=== PATIENT | female | born 1940 | race Caucasian/White ===

== ENCOUNTER → 2022-02-07 09:23 | Outpatient (BNVA) | payer MEDICARE, OTHER, SELFPAY | PROVIDERS: Family Provider Family Medicine; PCP Family Medicine; Visit Provider Internal Medicine Rheumatology | DX: M35.3 Polymyalgia rheumatica (principal); R76.8 Other specified abnormal immunological findings in serum; Z79.899 Other long term (current) drug therapy; Z79.52 Long term (current) use of systemic steroids; Z11.59 Encounter for screening for other viral diseases; Z11.1 Encounter for screening for respiratory tuberculosis; M81.0 Age-related osteoporosis without current pathological fracture; Z71.85 Encounter for immunization safety counseling | CPT/HCPCS: 80076; 82306; 82565; 85025; 85651; 86140; 86160; 86162; 86200; 86235; 86255; 86376; 86480; 86704; 86803; 87340; 99204 ==

== ENCOUNTER → 2022-05-23 14:03 | Outpatient (BNVA) | payer MEDICARE, OTHER, SELFPAY | PROVIDERS: Family Provider Family Medicine; PCP Family Medicine; Visit Provider Internal Medicine Rheumatology | DX: M35.3 Polymyalgia rheumatica (principal); Z79.899 Other long term (current) drug therapy; Z71.85 Encounter for immunization safety counseling; M19.90 Unspecified osteoarthritis, unspecified site; M81.0 Age-related osteoporosis without current pathological fracture | CPT/HCPCS: 99214 ==

== ENCOUNTER 2022-06-20 13:05 | Outpatient (CLI) | payer MEDICARE, OTHER, SELFPAY ==
[2022-06-20 13:26] LABS: Basophils % 0.3 %; Eosinophils % 0.2 %; Hematocrit 39.3 % (37.0-47.0); Hemoglobin 12.9 g/dL (11.5-15.3); Lymphocytes % 9.8 %; Mean Corpuscular HGB Conc 32.8 g/dL (30.0-36.0); Mean Corpuscular Hemoglobin 31.2 pg (28.0-34.0); Mean Corpuscular Volume 94.9 fl (81-99); Mean Platelet Volume 9.9 fL (7.4-10.4); Monocytes # 0.3 10^3/uL (0.2-0.9); Monocytes % 2.5 %; Neutrophils # 8.78 10^3/uL (1.8-7.7); Neutrophils % 86.5 %; Nucleated Red Blood Cells % 0 %; Platelet Count 280 10^3/cmm (130-400); Red Blood Count 4.14 10^6/uL (4.1-5.3); Red Cell Distribution Width 14.6 % (12.1-15.1); White Blood Count 10.1 10^3/uL (4.0-10.0)
[2022-06-20 15:05] LABS: Alanine Aminotransferase 16 U/L (0-33); Albumin Level 4.7 g/dL (3.5-5.2); Alkaline Phosphatase 60 U/L (35-105); Globulin 2.4 g/dL (1.3-4.6); Total Bilirubin 0.3 mg/dL (0.15-1.2); Total Protein 7.1 g/dL (6.6-8.7)
[2022-06-20 15:29] LABS: Aspartate Amino Transferase 17 U/L (0-32)
== END 2022-06-20 13:06 | disposition home or self-care (01) ==
PROVIDERS: PCP Family Medicine; Visit Provider Internal Medicine Rheumatology
DX: M35.3 Polymyalgia rheumatica (principal); Z79.899 Other long term (current) drug therapy
CPT/HCPCS: 36415; 80076; 82565; 85025; 86140

== ENCOUNTER → 2022-07-31 08:44 | Outpatient (BNVA) | payer MEDICARE, OTHER, SELFPAY | PROVIDERS: PCP Family Medicine; Visit Provider Internal Medicine Rheumatology | DX: M35.3 Polymyalgia rheumatica (principal); Z79.899 Other long term (current) drug therapy | CPT/HCPCS: 80076; 82565; 85025 ==

== ENCOUNTER → 2022-08-13 11:03 | Outpatient (BNVA) | payer MEDICARE, OTHER, SELFPAY | PROVIDERS: PCP Family Medicine; Visit Provider Internal Medicine Rheumatology | DX: M35.3 Polymyalgia rheumatica (principal); Z79.899 Other long term (current) drug therapy; Z71.85 Encounter for immunization safety counseling; M19.90 Unspecified osteoarthritis, unspecified site; R76.8 Other specified abnormal immunological findings in serum; Z79.52 Long term (current) use of systemic steroids; M81.0 Age-related osteoporosis without current pathological fracture | CPT/HCPCS: 99214 ==

== ENCOUNTER → 2022-10-31 09:05 | Outpatient (BNVA) | payer MEDICARE, OTHER, SELFPAY | PROVIDERS: PCP Family Medicine; Visit Provider Internal Medicine Rheumatology | DX: Z79.899 Other long term (current) drug therapy (principal); M35.3 Polymyalgia rheumatica | CPT/HCPCS: 80076; 82565; 85025; 85651; 86140 ==

== ENCOUNTER → 2022-11-06 10:31 | Outpatient (BNVA) | payer MEDICARE, OTHER, SELFPAY | PROVIDERS: PCP Family Medicine; Visit Provider Internal Medicine Rheumatology | DX: M35.3 Polymyalgia rheumatica (principal); Z79.899 Other long term (current) drug therapy; Z71.85 Encounter for immunization safety counseling | CPT/HCPCS: 99214 ==

== ENCOUNTER → 2023-01-29 09:06 | Outpatient (BNVA) | payer MEDICARE, OTHER, SELFPAY | PROVIDERS: PCP Family Medicine; Visit Provider Internal Medicine Rheumatology | DX: M35.3 Polymyalgia rheumatica (principal); Z79.899 Other long term (current) drug therapy | CPT/HCPCS: 80076; 82565; 85025; 86140 ==

== ENCOUNTER → 2023-02-04 11:24 | Outpatient (BNVA) | payer MEDICARE, OTHER, SELFPAY | PROVIDERS: PCP Family Medicine; Visit Provider Internal Medicine Rheumatology | DX: M35.3 Polymyalgia rheumatica (principal); Z79.899 Other long term (current) drug therapy; Z71.85 Encounter for immunization safety counseling | CPT/HCPCS: 99214 ==

== ENCOUNTER → 2023-03-13 09:08 | Outpatient (BNVA) | payer MEDICARE, OTHER, SELFPAY | PROVIDERS: PCP Family Medicine; Visit Provider Internal Medicine Rheumatology | DX: M35.3 Polymyalgia rheumatica (principal); Z79.899 Other long term (current) drug therapy | CPT/HCPCS: 80076; 82565; 85025; 86140 ==

== ENCOUNTER → 2023-05-13 10:54 | Outpatient (BNVA) | payer MEDICARE, OTHER, SELFPAY | PROVIDERS: PCP Family Medicine; Visit Provider Internal Medicine Rheumatology | DX: Z79.899 Other long term (current) drug therapy (principal); M35.3 Polymyalgia rheumatica; Z71.85 Encounter for immunization safety counseling | CPT/HCPCS: 99214 ==

== ENCOUNTER → 2023-07-12 08:59 | Outpatient (BNVA) | payer MEDICARE, OTHER, SELFPAY | PROVIDERS: PCP Family Medicine; Visit Provider Internal Medicine Rheumatology | DX: M35.3 Polymyalgia rheumatica (principal); Z79.899 Other long term (current) drug therapy | CPT/HCPCS: 80076; 82565; 85025; 86140 ==

== ENCOUNTER → 2023-08-05 11:13 | Outpatient (BNVA) | payer MEDICARE, OTHER, SELFPAY | PROVIDERS: PCP Family Medicine; Visit Provider Internal Medicine Rheumatology | DX: M35.3 Polymyalgia rheumatica (principal); Z79.899 Other long term (current) drug therapy; Z71.85 Encounter for immunization safety counseling | CPT/HCPCS: 99214 ==

== ENCOUNTER → 2023-08-23 10:47 | Outpatient (BNVA) | payer MEDICARE, OTHER, SELFPAY | PROVIDERS: PCP Family Medicine; Visit Provider Nurse Practitioner Family | DX: L57.0 Actinic keratosis (principal); L82.1 Other seborrheic keratosis; D22.5 Melanocytic nevi of trunk; L57.8 Other skin changes due to chronic exposure to nonionizing radiation; L81.4 Other melanin hyperpigmentation | CPT/HCPCS: 17000; 99213 ==

== ENCOUNTER → 2023-10-15 12:47 | Outpatient (BNVA) | payer MEDICARE, OTHER, SELFPAY | PROVIDERS: PCP Family Medicine; Referring Provider Family Medicine; Visit Provider Thoracic Surgery (Cardiothoracic Vascular Surgery) | DX: I71.21 Aneurysm of the ascending aorta, without rupture (principal) | CPT/HCPCS: 99213 ==

== ENCOUNTER → 2023-10-29 10:38 | Outpatient (BNVA) | payer MEDICARE, OTHER, SELFPAY | PROVIDERS: PCP Family Medicine; Visit Provider Dermatology | DX: D48.5 Neoplasm of uncertain behavior of skin (principal); D23.39 Other benign neoplasm of skin of other parts of face; L57.0 Actinic keratosis; L82.1 Other seborrheic keratosis | CPT/HCPCS: 11102; 17000; 99213 ==

== ENCOUNTER → 2023-11-11 12:28 | Outpatient (BNVA) | payer MEDICARE, OTHER, SELFPAY | PROVIDERS: PCP Family Medicine; Visit Provider Internal Medicine Rheumatology | DX: M35.3 Polymyalgia rheumatica (principal); Z79.899 Other long term (current) drug therapy; Z71.85 Encounter for immunization safety counseling | CPT/HCPCS: 99214 ==

== ENCOUNTER → 2023-11-18 09:14 | Outpatient (BNVA) | payer MEDICARE, OTHER, SELFPAY | PROVIDERS: PCP Family Medicine; Visit Provider Internal Medicine Rheumatology | DX: M35.3 Polymyalgia rheumatica (principal); Z79.899 Other long term (current) drug therapy | CPT/HCPCS: 80076; 82565; 85025; 86140 ==

== ENCOUNTER → 2023-11-19 09:34 | Outpatient (BNVA) | payer MEDICARE, OTHER, SELFPAY | PROVIDERS: PCP Family Medicine; Visit Provider Dermatology | DX: C44.311 Basal cell carcinoma of skin of nose (principal) | CPT/HCPCS: 14060; 17311 ==

== ENCOUNTER → 2023-11-27 09:33 | Outpatient (BNVA) | payer MEDICARE, OTHER, SELFPAY | PROVIDERS: PCP Family Medicine; Visit Provider Dermatology | DX: Z48.02 Encounter for removal of sutures (principal) | CPT/HCPCS: 99212 ==

== ENCOUNTER 2024-01-21 13:12 | Outpatient (CLI) | payer MEDICARE, OTHER, SELFPAY ==
--- NOTE | 2024-01-21 13:30 | CT_ITS ---
WS: [id number] CT chest wo con [id number] HISTORY: ascending dilation aorta TECHNIQUE: Axial imaging performed through the thorax. Coronal and sagittal reformats are submitted. All CT scans at [facility] use at least one of these dose optimization techniques: automated exposure control; mA and/or kV adjustment per patient size (includes targeted exams where dose is mat ched to clinical indication); or iterative reconstruction. CONTRAST: None DLP: 326.07 mGy.cm COMPARISON: Chest radiograph 03/25/2022 Lungs and central airway: No pulmonary mass or nodule. Subsegmental focal scarlike area in the RIGHT middle lobe. There are few granulomata. No pneumonia. Pleura: Normal. No pleural effusion. Heart and pericardium: Heart appears just top normal size. No pericardial effusion. Mediastinum and mihir: No adenopathy identified on this unenhanced exam. Vessels: Marked dilatation of the ascending thoracic aorta. Sinotubular junction appears normal size at 2.9 cm. Just distal to the sinotubular junction there is dilatation of the ascending thoracic aort a. Maximum diameter of 5.1 cm. Dilatation extends through the level of the great vessels. Descending aorta at the level of the geremias is normal at 2.8 cm. There is mild plaque. Without IV contrast canno t determine the intraluminal contents. There are a few scattered coronary artery calcifications. Orig in of the great vessels is normal. 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 Chest wall and lower neck: Calcification in the LEFT thyroid. Upper abdomen: Suprarenal aortic calcification. Splenic artery scattered calcifications. No adrenal m ass. Stomach is distended with food products. Osseous structures: No significant degenerative changes in the thoracic spine. No destructive bone le sions. IMPRESSION: 1. Marked dilatation of the ascending thoracic aorta, maximal diameter 5.1 cm. 2. 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 Descending thoracic aorta is normal caliber. Cannot determine the intraluminal content without IV contrast. 3. 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 4. No adenopathy. 5. Mild coronary artery calcification.
== END 2024-01-21 13:13 | disposition home or self-care (01) ==
LOC: RAD 13:13
PROVIDERS: PCP Family Medicine; Visit Provider Thoracic Surgery (Cardiothoracic Vascular Surgery)
DX: I71.21 Aneurysm of the ascending aorta, without rupture (principal); I25.10 Atherosclerotic heart disease of native coronary artery without angina pectoris
CPT/HCPCS: 71250

== ENCOUNTER → 2024-02-04 10:47 | Outpatient (BNVA) | payer MEDICARE, OTHER, SELFPAY | PROVIDERS: PCP Family Medicine; Visit Provider Internal Medicine Rheumatology | DX: M35.3 Polymyalgia rheumatica (principal); Z79.899 Other long term (current) drug therapy | CPT/HCPCS: 80076; 82565; 85025; 86140 ==

== ENCOUNTER → 2024-02-13 12:32 | Outpatient (BNVA) | payer MEDICARE, OTHER, SELFPAY | PROVIDERS: PCP Family Medicine; Visit Provider Internal Medicine Rheumatology | DX: Z79.899 Other long term (current) drug therapy (principal); M35.3 Polymyalgia rheumatica; Z71.85 Encounter for immunization safety counseling | CPT/HCPCS: 99214 ==

== ENCOUNTER 2024-05-04 10:12 | Emergency (ER) | payer MEDICARE, OTHER, SELFPAY ==
[2024-05-04 10:18] VITALS: BP 179/80; PULSE 69; RESP 18; TEMP 37.2; O2SAT 98; BMI 26.9
[2024-05-04 10:22] VITALS: PULSE 56; O2SAT 97
--- NOTE | 2024-05-04 10:30 | USCV_ITS ---
Vicky Reynolds Age: 83 Gender: F : 1940 Exam Date: 05/04/2024 11:35 Ordering Phys: Julia Duggan MD Technologist: CT Exam Location: [facility] [place] Indication: swelling PROCEDURES: Venous duplex imaging was performed in only the left lower extremity. FINDINGS: Evidence of acute occlusive deep vein thrombosis in the left popliteal vein to posterior tibial vein with abnormal flow dynamics. Otherwise negative. CONCLUSIONS Acute left DVT, popliteal to PTV. Dr. Danielle Treviño DO (Electronically Signed) Final Date: 04 May 2024 12:21 S
--- NOTE | 2024-05-04 10:39 | ED_ITS ---
HPI - Extremity Problem General: Chief complaint: Extremity Problem,Nontraumatic Stated complaint: left leg pain, Time Seen by Provider: 05/04/24 10:26 History of Present Illness: 83 polymyalgia rheumatica on methotrexat e who presents to the emergency room with pain in her foot and left calf and post. She is concerned for DVT. She has some bruising on the top of her foot. She says she does not know of any injury. No prolonged immobilization. No chest pain. No shortness of breath. No tachycardia. No hypoxemia. Review of Systems Narrative: Constitutional symptoms: Negative except as documented in HPI. Skin symptoms: Negative except as documented in HPI. Eye symptoms: Negative except as documented in HPI. ENMT symptoms: Negative except as documented in HPI. Respiratory symptoms: Negative except as documented in HPI. Cardiovascular symptoms: Negative except as documented in HPI. Gastrointestinal symptoms: Negative except as documented in HPI. Genitourinary symptoms: Negative except as documented in HPI. Musculoskeletal symptoms: Negative except as documented in HPI. Neurologic symptoms: Negative except as documented in HPI. Psychiatric symptoms: Negative except as documented in HPI. Endocrine symptoms: Negative except as documented in HPI. PFSH ED PFSH: Medical History Chronic steroid use Immunization counseling High risk medication use Polymyalgia rheumatica History of polymyalgia rheumatica Hypertension Joint pain Muscle pain Allergic rhinitis Hyperlipemia Osteopenia Osteoporosis History of seborrheic keratosis Essential hypertension Surgical History History of appendectomy History of tonsillectomy History of tubal ligation Family History Other Cancer Hypertension Rheumatoid arthritis Stroke Denies family history of Diabetes Lupus CAD (coronary artery disease) Chronic kidney disease (CKD) Lung disease Social History (Updated 11/11/23 @ 12:54 by Shruthi Paul LPN) Smoking and tobacco/nicotine status: never used tobacco/nicotine Alcohol intake: current Alcohol intake frequency: holidays/special occasions only Physical Exam Narrative: EXAM NARRATIVE: General: Alert, no acute distress. Skin: Warm, dry. Head: Normocephalic, atraumatic. Neck: Supple, trachea midline. Eye: Extraocular movements are intact. Ears, nose, mouth and throat: mucosa moist. Cardiovascular: Regular, Normal peripheral perfusion. Respiratory: Lungs are clear to auscultation, respirations are non-labored, breath sounds are equal, Symmetrical chest wall expansion. Gastrointestinal: Soft, Nontender, Non distended Musculoskeletal: Normal ROM, no deformity. There is a small bruise on the top of her left foot. Some pain with palpation of her left calf. Possibly some mild swelling. Neurological: Alert and oriented, No focal neurological deficit observed. Psychiatric: Cooperative, appropriate mood & affect. Course Vital Signs: Vital signs: Vital Signs Temperature 99.0 F 05/04/24 10:18 Pulse Rate 69 05/04/24 10:18 Respiratory Rate 18 05/04/24 10:18 Blood Pressure 179/80 05/04/24 10:18 Pulse Oximetry 98 05/04/24 10:18 Oxygen Delivery Me thod Room Air 05/04/24 10:18 MDM - Extremity (Nontraumatic) Medical Decision Making Ultrasound of left lower extremity was ordered. This was positive for DVT so I am sending basic lab work and coags and she can follow-up with the results for this with her primary. Ultrasound lower extremity: There is DVT. This was reviewed and interpreted by myself the emergency room physician. I also reviewed the radiology report. Assessment and plan: Deep vein thrombosis - Discharged home - Discussed plan with patient. Answered any questions. - Evaluation and treatment of this problem were appropriate in the emergency setting. All radiology interpretation(s) finalized by discharge Discharge Plan Discharge Patient Disposition: Home Clinical Impression: Deep vein thrombosis of lower extremity Condition: Stable Prescriptions: Lenny Monae DVT-PE Treat 30D Start 5 mg (74 tabs) tablets,dose pack 5 mg PO BID Qty: 74 0RF Rx Instructions: 2 tabs (10 mg) BID x 7 days, then 1 tab BID No Action fluticasone propionate [Flonase Allergy Relief] 50 mcg/actuation spray,suspension 1 spray intranasal DAILY Rx Instructions: administer into each nostril chlorthalidone 25 mg tablet 25 mg PO DAILY losartan 100 mg tablet 100 mg PO DAILY pseudoephedrine HCl [Sudafed] 30 mg tablet 30 mg PO Q6H PRN amlodipine 10 mg tablet 5 mg PO DAILY cetirizine 10 mg tablet 10 mg PO DAILY folic acid 1 mg tablet See Rx Instructions .ROUTE .COMPLEX Qty: 90 3RF Dose Instruction: TAKE 1 TABLET DAILY Rx Instructions: TAKE 1 TABLET DAILY methotrexate sodium 2.5 mg tablet See Rx Instructions PO .week Qty: 120 0RF Rx Instructions: Split dose.. 8 tabs on the same day once a week, take 4 tabs in the AM and 4 tabs in the PM famotidine 20 mg tablet 20 mg PO DAILY Discharge Orders: Discharge ED (Routine); Ordered 05/04/24 Ordered By: Julia Duggan Referrals: Anyi Zuniga MD [Primary Care Provider] - (Please follow-up with your primary provider in the next few days. You need workup for the cause of this clot.) Discharge Diet: Usual diet Discharge Activity: Limit activity as instructed Patient Instructions: Apixaban (By mouth) (Eliquis), Deep Vein Thrombosis (ED) Activity Restrictions/Additional Instructions: Thank you for choosing [facility] for your healthcare needs today. Please realize this is an emergency room and that we are providing you with a medical screening exam and this may not be complete and all inclusive of all the testing and or work up that you may need to determine your ailment or severity of your illness. You have been screened and evaluated and felt safe for discharge. Health conditions do change or evolve sometimes and as such it is important that you follow up with your Primary Doctor to be re checked, 3-5 days is a general good time frame for follow up. You are always welcome to return to the ED for re assessment if your symptoms are worsening or you have new concerns Coding Level of Care Code ED Costume Mistress for Steve Valenzuela
[2024-05-04 12:27] LABS: Basophils # 0.1 10^3/uL (0.0-0.1); Eosinophils # 0.1 10^3/uL (0.0-0.8); Eosinophils % 1.9 %; Lymphocytes # 0.9 10^3/uL (0.8-4.8); Mean Corpuscular HGB Conc 33.2 g/dL (30-55); Mean Corpuscular Hemoglobin 32.3 pg (27-33); Mean Corpuscular Volume 97.4 fl (85-98); Mean Platelet Volume 9.8 fL (7.4-10.4); Monocytes # 0.5 10^3/uL (0.2-0.9); Monocytes % 9.4 %; Neutrophils # 3.62 10^3/uL (1.8-7.7); Neutrophils % 69.1 %; Nucleated Red Blood Cells % 0 %; Platelet Count 198 10^3/cmm (157-399); Red Cell Distribution Width 14.7 % (12.1-15.1); White Blood Count 5.23 10^3/uL (3.29-11.43)
[2024-05-04 12:40] LABS: INR 0.92 (0.8-1.2)
[2024-05-04 12:45] LABS: Alanine Aminotransferase 22 U/L (0-33); Albumin Level 4.4 g/dL (3.5-5.2); Alkaline Phosphatase 99 U/L (35-105); Blood Urea Nitrogen 14 mg/dL (8-23); Calcium 10.1 mg/dL (8.5-10.5); Carbon Dioxide 26 mmol/L (22-29); Chloride 100 mmol/L (98-107); Creatinine Clr Calc Pharmacy 55.4147; Globulin 3.1 g/dL (1.3-4.6); Glucose 88 mg/dL (65-115); Osmolality Calculated 286 mOsm/kg (285-295); Sodium 138 mmol/L (136-145); Total Bilirubin 0.5 mg/dL (0.15-1.2); Total Protein 7.5 g/dL (6.6-8.7)
[2024-05-04 13:26] LABS: Anion Gap 16.1 (5-19); Aspartate Amino Transferase 25 U/L (0-32); Potassium 4.1 mmol/L (3.5-5.1)
== END 2024-05-04 12:44 | disposition home or self-care (01) ==
PROVIDERS: Emergency Provider Emergency Medicine; PCP Family Medicine
DX: M79.605 Pain in left leg (principal); I82.432 Acute embolism and thrombosis of left popliteal vein; I10 Essential (primary) hypertension
CPT/HCPCS: 36415; 80053; 85025; 85610; 85730; 93971; 99284

== ENCOUNTER → 2024-06-22 09:51 | Outpatient (BNVA) | payer MEDICARE, OTHER, SELFPAY | PROVIDERS: PCP Family Medicine; Visit Provider Internal Medicine Rheumatology | DX: Z79.899 Other long term (current) drug therapy (principal); M35.3 Polymyalgia rheumatica | CPT/HCPCS: 80076; 82565; 85025; 86140 ==

== ENCOUNTER → 2024-06-24 10:16 | Outpatient (BNVA) | payer MEDICARE, OTHER, SELFPAY | PROVIDERS: PCP Family Medicine; Visit Provider Internal Medicine Rheumatology | DX: M35.3 Polymyalgia rheumatica (principal); Z79.899 Other long term (current) drug therapy; Z71.85 Encounter for immunization safety counseling | CPT/HCPCS: 99214 ==

== ENCOUNTER → 2024-07-20 13:26 | Outpatient (BNVA) | payer MEDICARE, OTHER, SELFPAY | PROVIDERS: PCP Family Medicine; Visit Provider Internal Medicine | DX: R07.9 Chest pain, unspecified (principal); I49.8 Other specified cardiac arrhythmias | CPT/HCPCS: 93005 ==

== ENCOUNTER 2024-07-23 08:17 | Outpatient (CLI) | payer MEDICARE, OTHER, SELFPAY ==
--- NOTE | 2024-07-23 08:30 | USCV_ITS ---
Vicky Reynolds Age: 84 Gender: F : 1940 Exam Date: 07/23/2024 08:36 Ordering Phys: Cecil Holt M.D ([email or web address]) Technologist: SOLEDAD [place] [facility] [place]: SHORTNESS OF BREATH BP: 185 / 90 HR: 56 Rhythm: Sinus Technical Quality: Adequate MEASUREMENTS (Male / Female) Normal Values 2D ECHO LV Diastolic Diameter PLAX 3.4 cm 4.2 - 5.9 / 3.9 - 5.3 cm IVS Diastolic Thickness 1.0 cm 0.6 - 1.0 / 0.6 - 0.9 cm IVS Systolic Thickness 1.8 cm LVPW Diastolic Thickness 1.7 cm 0.6 - 1.0 / 0.6 - 0.9 cm LVPW Systolic Thickness 3.1 cm LVOT Diameter 1.9 cm LV Ejection Fraction 2D Teich 72.8 % LV Ejection Fraction MOD 4C 70.9 % LV Ejection Fraction MOD 2C 72.5 % LV Ejection Fraction 2C AL 72.4 % LA Diameter 2.8 cm RA Systolic Volume 4C AL 15.6 ml RA Systolic Volume 4C MOD 14.8 ml LA Sys Volume AL 38.5 cm cubed LA Sys Volume Index AL 20.0 cm cubed/m squared Aorta at Sinotubular Diameter 2.7 cm IVC Diameter 1.8 cm M-MODE LA Ao Ratio MM 1.0 AV Cusp Separation MM 1.2 cm DOPPLER AV Peak Velocity 141.0 cm/s LVOT Peak Velocity 127.0 cm/s AV Area Cont Eq vti 2.9 cm squared AV Area Cont Eq pk 2.6 cm squared MV Peak Velocity 140.0 cm/s MV Area PHT 2.1 cm squared Mitral E to A Ratio 0.9 TR Peak Velocity 233.0 cm/s TR Peak Gradient 21.7 mmHg TR Mean Velocity 196.0 cm/s TR Mean Gradient 16.1 mmHg TR Velocity Time Integral 79.7 cm TV Peak E Velocity 68.0 cm/s Right Atrial Pressure 3.0 mmHg Pulmonary Artery Systolic Pressu 24.7 mmHg PV Peak Velocity 113.0 cm/s RV Ejection Time 0.4 s FINDINGS Left Ventricle Normal left ventricular size, systolic function and wall thickness, with no regional wall motion abnormalities. Left ventricular ejection fraction is estimated at 60 %. Grade I/IV diastolic dysfunction (abnormal relaxation filling pattern), normal to mildly elevated filling pressures. Right Ventricle The right ventricle is normal in size and function. Right Atrium The right atrium is normal in size. Left Atrium The left atrium is normal in size. Mitral Valve Moderately thickened mitral valve. Mild mitral annular calcification. Aortic Valve Mild aortic valve calcification. No aortic valve stenosis. Trace aortic valve regurgitation. Tricuspid Valve Structurally normal tricuspid valve without significant stenosis or regurgitation. Pulmonary artery systolic pressure is normal. Pulmonic Valve Structurally normal pulmonic valve without significant stenosis. There is no pulmonic regurgitation. Pericardium Normal pericardium without effusion. Aorta Normal ascending aorta dimension. IVC The inferior vena cava appears normal. CONCLUSIONS Normal left ventricular size, systolic function and wall thickness, with no regional wall motion abnormalities. Left ventricular ejection fraction is estimated at 60 %. Grade I/IV diastolic dysfunction (abnormal relaxation filling pattern), normal to mildly elevated filling pressures. No significant valve abnormalities. There is no pericardial effusion. Pulmonary artery systolic pressure is within normal limits. Right atrial pressure is around 5 mm of mercury. Fidelina Schulte MD (Electronically Signed) Final Date: 23 July 2024 10:50 S
== END 2024-07-23 08:18 | disposition home or self-care (01) ==
LOC: RAD 08:17
PROVIDERS: PCP Family Medicine; Visit Provider Internal Medicine
DX: I50.30 Unspecified diastolic (congestive) heart failure (principal); I34.81 Nonrheumatic mitral (valve) annulus calcification; R06.02 Shortness of breath
CPT/HCPCS: 36415; 80048; 83880; 93306

== ENCOUNTER 2024-08-04 13:09 | Outpatient (CLI) | payer MEDICARE, OTHER, SELFPAY ==
--- NOTE | 2024-08-04 13:30 | CTR_ITS ---
PROCEDURE INFORMATION: Exam: CT Chest Without Contrast; Diagnostic Exam date and time: 08/04/2024 1:51 PM Age: 84 years old Clinical indication: Condition or disease; Other: Ascending thoracic aneurysm TECHNIQUE: Imaging protocol: Diagnostic computed tomography of the chest without contrast. Radiation optimization: All CT scans at this facility use at least one of these dose optimization techniques: automated exposure control; mA and/or kV adjustment per patient size (includes targeted exams where dose is matched to clinical indication); or iterative reconstruction. COMPARISON: CT chest con [id number] 01/21/2024 1:33 PM RADIATION DOSE METRICS: Total DLP (mGy-cm): 327.65 FINDINGS: Thyroid: Stable appearance of the thyroid with a punctate left thyroid calcification. Lungs: Similar focal area of subpleural scarring in the right middle lobe. No focal consolidation or generalized interstitial process. No new or enlarging pulmonary nodules. Pleural spaces: Unremarkable. No pneumothorax. No pleural effusion. Heart: Unremarkable. No cardiomegaly. No pericardial effusion. Coronary arteries: Scattered coronary artery calcifications. Lymph nodes: Unremarkable. No enlarged lymph nodes. Vasculature: No significant interval change in an ascending thoracic aorta aneurysm measuring up to 5.1 cm in caliber. As before, the dilation extends through the level of the great vessels. The descending thoracic aorta measures 2.8 cm of the level of the main pulmonary artery as before. Mild scattered atherosclerotic aortic calcifications. Bones/joints: Unremarkable. No acute fracture. Soft tissues: Unremarkable. CT/CT chest con [id number] IMPRESSION: 1. Stable ascending thoracic aorta aneurysm measuring up to 5.1 cm. 2. Remainder stable.
== END 2024-08-04 13:10 | disposition home or self-care (01) ==
LOC: RAD 13:10
PROVIDERS: PCP Family Medicine; Visit Provider Internal Medicine
DX: I71.21 Aneurysm of the ascending aorta, without rupture (principal); R91.8 Other nonspecific abnormal finding of lung field
CPT/HCPCS: 71250

== ENCOUNTER → 2024-12-23 10:27 | Outpatient (BNVA) | payer MEDICARE, OTHER, SELFPAY | PROVIDERS: PCP Family Medicine; Visit Provider Internal Medicine Rheumatology | DX: M35.3 Polymyalgia rheumatica (principal); Z79.899 Other long term (current) drug therapy; Z71.85 Encounter for immunization safety counseling | CPT/HCPCS: 99214 ==

== ENCOUNTER → 2025-01-18 10:12 | Outpatient (BNVA) | payer MEDICARE, OTHER, SELFPAY | PROVIDERS: PCP Family Medicine; Visit Provider Nurse Practitioner Family | DX: I10 Essential (primary) hypertension (principal); I71.21 Aneurysm of the ascending aorta, without rupture; Z86.718 Personal history of other venous thrombosis and embolism; Z79.01 Long term (current) use of anticoagulants | CPT/HCPCS: 99214 ==

== ENCOUNTER → 2025-07-20 12:19 | Outpatient (BNVA) | payer MEDICARE, OTHER, SELFPAY | PROVIDERS: PCP Nurse Practitioner Family; Visit Provider Internal Medicine | DX: I77.819 Aortic ectasia, unspecified site (principal); I10 Essential (primary) hypertension; Z86.718 Personal history of other venous thrombosis and embolism; Z79.01 Long term (current) use of anticoagulants | CPT/HCPCS: 99214 ==